=== PATIENT | male | born 1945 | race Caucasian/White ===

== ENCOUNTER 2022-07-18 11:57 | Inpatient (IN) | payer MEDICARE ==
[2022-07-18 13:06] LABS: #Basophils 0.1 10x3/uL (0.0-0.2); #Eosinphils 0.1 10x3/uL (0.0-0.5); #Monocytes 1.2 10x3/uL (0.0-1.1); #Neutrophils 9.4 10x3/uL (1.5-8.4); %Basophils 0.6 % (0.0-2.0); %Lymphocytes 15.3 % (18.0-47.0); %Neutrophils 73.2 % (40.0-75.0); Hemoglobin 15.2 g/dL (13.5-17.5); Mean Corpuscular Hemoglobin 28.4 pg (27.0-33.0); Mean Corpuscular Volume 83.4 fl (81.2-95.1); Mean Platelet Volume 10.1 fl (7.4-10.4); Platelet Count 382 10x3/uL (150-450); Red Blood Cell (RBC) Count 5.36 10x6/uL (4.32-5.72); White Blood Cell (WBC) Count 12.8 10x3/uL (3.5-10.5)
[2022-07-18 13:15] LABS: INR-International Normal Ratio 0.9; PTT 23.4 sec (22.0-33.0); Prothrombin Time 10.3 sec (9.5-12.1)
[2022-07-18 13:21] LABS: ALT (SGPT) 17 U/L (8-55); AST (SGOT) 16 U/L (5-34); Alkaline Phosphatase 66 U/L (40-110); Anion Gap 19 mmol/L (10-20); BUN (Urea Nitrogen) 92 mg/dL (8.4-25.7); Bilirubin, Total 1.2 mg/dL (0.2-1.2); Calc. Creatinine Clearance 0 mL/min (70-130); Calcium 11.9 mg/dL (7.8-10.44); Carbon Dioxide 31 mmol/L (23-31); Chloride 87 mmol/L (98-107); Estimated GFR 16; Globulin 3.1 g/dL (2.4-3.5); Glucose 287 mg/dL (83-110); Protein, Total 7.1 g/dL (5.8-8.1); Sodium 134 mmol/L (136-145)
[2022-07-18 13:25] LABS: Potassium 2.5 mmol/L (3.5-5.1)
[2022-07-18 13:59] LABS: Bilirubin Neg (Negative); Blood, Urine Negative (Negative); Clarity Clear (Clear); Glucose, Urine (Dipstick) Normal (Negative); Ketone, Urine Negative (Negative); Leukocyte Negative (Negative); Nitrite Negative (Negative); Protein, Urine (Dipstick) Negative (Neg-Trace); Specific Gravity, Urine 1.015 (1.005-1.030); Urobilinogen Normal mg/dL (Less than 2)
[2022-07-18] MEDS ORDERED: Aspirin Chewable 81 MG TAB ONE (14:01)
[2022-07-18] MEDS ORDERED: Potassium Chloride 20 MEQ TAB ONE (14:02)
[2022-07-18] MEDS ORDERED: Guaifenesin DM 100-10/5 ML UDCUP PO PRN (19:38)
[2022-07-18] MEDS ORDERED: Calcium Carbonate 500 MG ChewTAB PO PRN (19:38)
[2022-07-18] MEDS ORDERED: Dextrose 50% Abboject 50 ML SYRINGE SLOW IVP PRN (19:38)
[2022-07-18] MEDS ORDERED: Senokot S 8.6-50 MG TAB PO PRN (19:38)
[2022-07-18] MEDS ORDERED: Dextrose 5% in Water 1,000 ML IV PRN (19:38)
[2022-07-18] MEDS ORDERED: HYDROcodone/Acetaminophen 5/325 mg Tablet PO PRN (19:38)
[2022-07-18] MEDS ORDERED: Acetaminophen 325 MG TAB PO PRN (19:38)
[2022-07-18] MEDS ORDERED: Ondansetron PF 4 MG/2 ML Vial IVP PRN (19:38)
[2022-07-18] MEDS ORDERED: Sodium Chloride 0.9% 1,000 ML IV SCH (19:45)
[2022-07-18] MEDS ORDERED: Potassium Chloride 20 MEQ TAB PO SCH (20:15)
[2022-07-18] MEDS: Atorvastatin Calcium 10 MG TAB PO SCH (20:56)
[2022-07-18] MEDS: Tamsulosin HCl 0.4 MG CAP PO SCH (20:57)
[2022-07-18] MEDS: Lantus 1000 UNITS/10 ML VIAL SC SCH (21:10)
[2022-07-18] MEDS: Nateglinide 120 MG TAB PO SCH (21:12)
[2022-07-18] MEDS: HumaLOG 300 UNITS/3 ML VIAL SC PRN (21:15)
[2022-07-18 22:22] VITALS: BMI 35.2
[2022-07-18 23:32] LABS: CKMB 2.9 ng/mL (0-6.6)
[2022-07-18 23:42] LABS: SARS-CoV-2 NAA Rapid Test Not Detected (NotDetected)
[2022-07-19 04:49] LABS: #Basophils 0.1 10x3/uL (0.0-0.2); #Eosinphils 0.2 10x3/uL (0.0-0.5); #Monocytes 1.3 10x3/uL (0.0-1.1); #Neutrophils 7.8 10x3/uL (1.5-8.4); %Basophils 0.7 % (0.0-2.0); %Eosinophils 1.9 % (0.0-6.0); %Lymphocytes 15.8 % (18.0-47.0); %Monocytes 11.5 % (0.0-10.0); Hemoglobin 14.1 g/dL (13.5-17.5); Mean Corpuscular HGB CONC 33.7 g/dL (32.0-36.0); Mean Corpuscular Hemoglobin 28.2 pg (27.0-33.0); Mean Corpuscular Volume 83.6 fl (81.2-95.1); Mean Platelet Volume 10.2 fl (7.4-10.4); Platelet Count 334 10x3/uL (150-450); RBC Distribution Width 14.1 % (11.5-14.5); White Blood Cell (WBC) Count 11.3 10x3/uL (3.5-10.5)
[2022-07-19 05:05] LABS: Anion Gap 16 mmol/L (10-20); BUN (Urea Nitrogen) 75 mg/dL (8.4-25.7); CK (CPK) 184 U/L (30-200); Calc. Creatinine Clearance 30 mL/min (70-130); Calcium 10.8 mg/dL (7.8-10.44); Carbon Dioxide 29 mmol/L (23-31); Chloride 95 mmol/L (98-107); Estimated GFR 21; Glucose 119 mg/dL (83-110); Magnesium 1.9 mg/dL (1.6-2.6); Sodium 137 mmol/L (136-145)
[2022-07-19 05:10] LABS: Potassium 2.6 mmol/L (3.5-5.1)
[2022-07-19] MEDS: Levothyroxine Sodium 50 MCG TAB PO SCH (05:17)
[2022-07-19] MEDS ORDERED: Potassium Chloride 20 MEQ TAB PO SCH ×3 (05:30→17:00)
[2022-07-19] MEDS: Magnesium Oxide 400 MG TAB PO SCH ×2 (10:18→22:30)
[2022-07-19] MEDS: Aspirin 81 mg Enteric Coated Tablet PO SCH (10:18)
[2022-07-19] MEDS: Polyethylene Glycol 3350 17 GM Packet PO SCH (10:18)
[2022-07-19] MEDS: Clopidogrel Bisulfate 75 MG TAB PO SCH (10:18)
[2022-07-19 10:36] LABS: Potassium 2.9 mmol/L (3.5-5.1)
[2022-07-19] MEDS ORDERED: Diazepam 2 MG TAB PO ONE (11:36)
[2022-07-19] MEDS ORDERED: Electrolyte Replacement Protocol 1 EACH FS SCH (11:45)
[2022-07-19] MEDS: Nateglinide 120 MG TAB PO SCH ×3 (12:22→22:31)
[2022-07-19] MEDS: Sodium Chloride 0.9% 1,000 ML IV SCH (17:58)
[2022-07-19] MEDS: HumaLOG 300 UNITS/3 ML VIAL SC PRN (18:05)
[2022-07-19 20:49] LABS: Potassium 3.8 mmol/L (3.5-5.1)
[2022-07-19] MEDS: Atorvastatin Calcium 10 MG TAB PO SCH (22:30)
[2022-07-19] MEDS: Tamsulosin HCl 0.4 MG CAP PO SCH (22:30)
[2022-07-20 04:14] LABS: Anion Gap 14 mmol/L (10-20); BUN (Urea Nitrogen) 54 mg/dL (8.4-25.7); Calc. Creatinine Clearance 40 mL/min (70-130); Calcium 10.3 mg/dL (7.8-10.44); Carbon Dioxide 25 mmol/L (23-31); Chloride 103 mmol/L (98-107); Estimated GFR 30; Glucose 112 mg/dL (83-110); Potassium 3.4 mmol/L (3.5-5.1); Sodium 139 mmol/L (136-145)
[2022-07-20 04:16] LABS: #Basophils 0.1 10x3/uL (0.0-0.2); #Eosinphils 0.2 10x3/uL (0.0-0.5); #Neutrophils 6.7 10x3/uL (1.5-8.4); %Basophils 0.6 % (0.0-2.0); %Eosinophils 2.1 % (0.0-6.0); %Lymphocytes 16.1 % (18.0-47.0); %Monocytes 10.6 % (0.0-10.0); %Neutrophils 69.6 % (40.0-75.0); Hemoglobin 13.7 g/dL (13.5-17.5); Mean Corpuscular HGB CONC 33.3 g/dL (32.0-36.0); Mean Corpuscular Hemoglobin 28.2 pg (27.0-33.0); Mean Corpuscular Volume 84.7 fl (81.2-95.1); Mean Platelet Volume 10.3 fl (7.4-10.4); Platelet Count 313 10x3/uL (150-450); RBC Distribution Width 14.2 % (11.5-14.5); Red Blood Cell (RBC) Count 4.85 10x6/uL (4.32-5.72); White Blood Cell (WBC) Count 9.6 10x3/uL (3.5-10.5)
[2022-07-20] MEDS: Lantus 1000 UNITS/10 ML VIAL SC SCH ×2 (06:15→20:52)
[2022-07-20] MEDS: Levothyroxine Sodium 50 MCG TAB PO SCH (06:17)
[2022-07-20] MEDS: Sodium Chloride 0.9% 1,000 ML IV SCH ×2 (06:17→20:59)
[2022-07-20] MEDS ORDERED: Potassium Chloride 20 MEQ TAB PO SCH (08:00)
[2022-07-20] MEDS: Aspirin 81 mg Enteric Coated Tablet PO SCH (10:00)
[2022-07-20] MEDS: Magnesium Oxide 400 MG TAB PO SCH ×2 (10:00→20:18)
[2022-07-20] MEDS: Clopidogrel Bisulfate 75 MG TAB PO SCH (10:00)
[2022-07-20] MEDS: Polyethylene Glycol 3350 17 GM Packet PO SCH (10:05)
[2022-07-20] MEDS: Nateglinide 120 MG TAB PO SCH ×3 (10:05→20:18)
[2022-07-20] MEDS: Atorvastatin Calcium 10 MG TAB PO SCH (20:17)
[2022-07-20] MEDS: Metoprolol Tartrate 25 MG TAB PO SCH (20:18)
[2022-07-20] MEDS: Tamsulosin HCl 0.4 MG CAP PO SCH (20:18)
[2022-07-21] MEDS: Levothyroxine Sodium 50 MCG TAB PO SCH (05:16)
[2022-07-21 05:22] LABS: #Basophils 0.1 10x3/uL (0.0-0.2); #Eosinphils 0.3 10x3/uL (0.0-0.5); #Monocytes 0.9 10x3/uL (0.0-1.1); #Neutrophils 6.4 10x3/uL (1.5-8.4); %Basophils 0.7 % (0.0-2.0); %Eosinophils 3.3 % (0.0-6.0); %Lymphocytes 16.4 % (18.0-47.0); %Monocytes 9.2 % (0.0-10.0); %Neutrophils 69.4 % (40.0-75.0); Hemoglobin 13.4 g/dL (13.5-17.5); Mean Corpuscular HGB CONC 33.2 g/dL (32.0-36.0); Mean Corpuscular Hemoglobin 28.5 pg (27.0-33.0); Mean Platelet Volume 10.1 fl (7.4-10.4); Platelet Count 301 10x3/uL (150-450); RBC Distribution Width 14.8 % (11.5-14.5); White Blood Cell (WBC) Count 9.2 10x3/uL (3.5-10.5)
[2022-07-21 05:27] LABS: Anion Gap 12 mmol/L (10-20); BUN (Urea Nitrogen) 37 mg/dL (8.4-25.7); Calc. Creatinine Clearance 49 mL/min (70-130); Calcium 9.6 mg/dL (7.8-10.44); Carbon Dioxide 27 mmol/L (23-31); Chloride 104 mmol/L (98-107); Estimated GFR 38; Glucose 151 mg/dL (83-110); Potassium 3.5 mmol/L (3.5-5.1); Sodium 139 mmol/L (136-145)
[2022-07-21 08:57] VITALS: BP 133/66; TEMP 97.7
[2022-07-21] MEDS: Clopidogrel Bisulfate 75 MG TAB PO SCH (08:59)
[2022-07-21] MEDS: Metoprolol Tartrate 25 MG TAB PO SCH (08:59)
[2022-07-21] MEDS: Aspirin 81 mg Enteric Coated Tablet PO SCH (08:59)
[2022-07-21] MEDS: Magnesium Oxide 400 MG TAB PO SCH (08:59)
[2022-07-21] MEDS: Nateglinide 120 MG TAB PO SCH (10:30)
[2022-07-21] MEDS: Polyethylene Glycol 3350 17 GM Packet PO SCH (12:45)
== END 2022-07-21 12:45 | disposition home health service (06) | DRG 684 ==
LOC: CSHERS 11:57 → CSHTELE 16:50
PROVIDERS: ADMIT Student in an Organized Health Care Education/Training Program; ATTEND Internal Medicine
DX: N17.9 Acute kidney failure, unspecified (principal); E86.0 Dehydration; R53.1 Weakness; N18.30 Chronic kidney disease, stage 3 unspecified; I12.9 Hypertensive chronic kidney disease with stage 1 through stage 4 chronic kidney disease, or unspecified chronic kidney disease; E11.22 Type 2 diabetes mellitus with diabetic chronic kidney disease; N40.0 Benign prostatic hyperplasia without lower urinary tract symptoms; G47.30 Sleep apnea, unspecified; Z96.641 Presence of right artificial hip joint; R53.81 Other malaise; E87.6 Hypokalemia; D72.829 Elevated white blood cell count, unspecified; E78.00 Pure hypercholesterolemia, unspecified; E03.9 Hypothyroidism, unspecified; Z79.899 Other long term (current) drug therapy; Z86.19 Personal history of other infectious and parasitic diseases; Z86.73 Personal history of transient ischemic attack (TIA), and cerebral infarction without residual deficits; Z98.890 Other specified postprocedural states; Z79.82 Long term (current) use of aspirin; Z20.822 Contact with and (suspected) exposure to COVID-19; D63.1 Anemia in chronic kidney disease; Z79.4 Long term (current) use of insulin; Z79.84 Long term (current) use of oral hypoglycemic drugs; Z79.02 Long term (current) use of antithrombotics/antiplatelets; R77.8 Other specified abnormalities of plasma proteins
CPT/HCPCS: 36415; 36416; 70450; 70551; 71045; 80048; 80053; 81003; 82550; 82553; 83605; 83735; 83880; 84443; 84484; 85025; 85610; 85730; 93005; 94760; 96360; 96361; J1650; J1815; J7050

== ENCOUNTER 2023-04-30 14:18 | Outpatient (CLI) | payer MEDICARE ==
[~2023-04-30 14:18] MED LIST: Magnevist 469MG/ML 20 ML VIAL ONE
== END 2023-04-30 14:19 | disposition home or self-care (01) ==
LOC: CSHMRI 14:18
PROVIDERS: ATTEND Internal Medicine Cardiovascular Disease
DX: R06.02 Shortness of breath (principal); Z86.73 Personal history of transient ischemic attack (TIA), and cerebral infarction without residual deficits; I65.23 Occlusion and stenosis of bilateral carotid arteries; I65.01 Occlusion and stenosis of right vertebral artery
CPT/HCPCS: 70549

== ENCOUNTER 2023-06-13 11:02 | Outpatient (CLI) | payer MEDICARE | END 2023-06-13 11:03 | disposition home or self-care (01) | LOC: CSHCP 11:02 | PROVIDERS: ATTEND Internal Medicine Cardiovascular Disease | DX: R06.02 Shortness of breath (principal); J44.9 Chronic obstructive pulmonary disease, unspecified | CPT/HCPCS: 94060; 94726; 94729; 94760 ==